=== PATIENT | female | born 1995 | race Caucasian/White ===

== ENCOUNTER 2017-10-25 18:45 | Inpatient (IN) ==
--- NOTE | 2017-10-25 18:19 | OB/GYN History & Physical ---
Date of Encounter: 10/25/17 Time of Encounter: 18:13 Assessment and Plan (1) 39 weeks gestation of Current visit: Yes Status: Acute admitted for delivery (2) Two vessel umbilical cord, antepartum, single gestation Current visit: Yes Status: Acute admitted for delivery (3) Spontaneous rupture of amniotic membranes Current visit: Yes Status: Acute admitted for delivery GBS: Negative History of Present Illness Chief complaint: SROM HPI: Ms. Quick is a 22 year old female at 39w3d presents to labor and delivery with complaints of leaking fluid that started around 12 noon today. Patient denies any color or odor to fluid. Patient reports occasional contractions and +FM. Patient denies any vaginal bleeding. Speculum exam on admission: + pooling,+nitrazine and + FERN test. SVE 3.5/90/-1. Patient admitted for delivery. Patient reports complicated by 2 vessel cord. Blood type: A+ GBS: Negative Rubella:Immune Hep B:Nonreactive RPR: Negative Past Med Surg Social Fam HX - Past Medical History Source: patient Medical history: no medical history Psychiatric history: no psych history - Past Surgical History Surgical History: no surgical history - Social History Smoking Status: Current every day smoker Smokeless Tobacco Status: No Alcohol use: none Drug use: none Occupational status: employed Current living situation: Home - Independent Activity Level: Independent ambulation Recent Out of Country Travel Within the Last 8 Weeks: No Exposure or Possible Exposure to Illness During Travel: No Obstetrical History - Pregnancies : 1 Para: 0 Term: 0 : 0 Ab's: 0 Livin Medications and Allergies Acyclovir 30 gm TP DAILY #1 oint...g. 05/07/16 [Rx] Acyclovir [Zovirax] 200 mg PO 5XD #50 capsule 05/07/16 [Rx] Sulfamethoxazole/Trimeth DS [Bactrim DS] 1 each PO BID #20 tablet 05/07/16 [Rx] 3 Allergy/AdvReac Type Severity Reaction Status Date / Time No Known Allergies Allergy Verified 03/02/16 11:29 Review of System OB - Constitutional Constitutional ROS IM: no chills, no fever(s), no headache(s) - Cardiovascular Cardiovascular: no chest pain, no leg edema, no palpitations, no pedal edema, no syncope - Respiratory Respiratory: no cough - Gastrointestinal Gastrointestinal: no abdominal pain, no constipation, no cramping, no diarrhea, no heartburn, no nausea, no vomiting - Genitourinary Genitourinary: vaginal discharge (per HPI), no abnormal vaginal bleeding, no difficulty urinating, no dysuria, no flank pain, no urinary frequency, no vaginal odor, no vaginal pruritis Exam - Constitutional Constitutional: well developed, well nourished, no acute distress, average body habitus - HEENT HEENT: Normocephaly, Mucus Membranes Moist - Neck Neck exam: full ROM, supple - Lungs Respiratory exam: CTAB - Cardiovascular Cardiovascular exam: RRR, +S1, +S2 - Abdomen Abdomen: Present: bowel sounds normal, gravid, non tender - Extremities Extremities exam: full ROM, normal capillary refill Deep Tendon Reflex Grade: 2+ Normal - Vagina Vagina: Present: normal moisture - Cervix Dilation: 3 (3.5) Effacement: 90 Station: -1 - Uterus Uterus exam: Present: normal size, normal contour - Anus/Rectum Anus/Rectum: Present: normal perianal skin - Comments Comments: speculum exam: +FERN, + Pooling and + Nitrazine. FHR 145 bpm moderate variability +15x15 accels no decels noted. Contractions 3- 4 min apart. Cat 1 tracing. Results All other labs normal. - VTE Reasons for not Prescribing Prophylaxis: Treatment not Indicated - Low risk for VTE
[~2017-10-25 18:45] MED LIST: *HR* Nalbuphine 20 MG/ML AMPUL IVP PRN; Famotidine 20 MG/2 ML VIAL IVP PRN; Naloxone 0.4 MG/ML INJ IVP PRN; Ondansetron 4 MG/2 ML VIAL IVP PRN; Ringers Solution, Lactated 1,000 ML IVC SCH
[2017-10-25 19:01] LABS: Basophils % 0.2 %; Eosinophils % 0.2 %; Hematocrit 35.9 % (35.3-44.9); Immature Granulocytes % 1.3 % (0-4); Lymphocytes # 1.6 K/mcL (0.6-4.6); Lymphocytes % 11.4 %; Mean Corpuscular HGB Conc 33.4 g/dL (31.6-35.5); Mean Corpuscular Hemoglobin 29.3 pg (28.0-33.3); Mean Corpuscular Volume 87.6 fL (83.0-100.0); Mean Platelet Volume 9.8 fL (9.4-12.4); Monocytes # 0.9 K/mcL (0.0-1.3); Monocytes % 6.7 %; Neutrophils # 11.1 K/mcL (1.6-8.9); Platelet Count 249 K/mcL (140-400); Red Cell Distribution Width 13.4 % (11.5-14.5); Segmented Neutrophils % 80.2 %
[2017-10-25] MEDS ORDERED: Oxytocin 20 units/ LR 1000 mL 20 UNIT/1,000 ML BAG IVC SCH (19:45)
--- NOTE | 2017-10-25 20:44 | OB Labor Progress Note ---
Date of Encounter: 10/25/17 Time of Encounter: 20:42 Labor Progress Note - Subjective Subjective: Patient resting in bed. Patient reports feeling contractions at this time. - Cervix Cervix: 4/90/-1 - Heart Tones Heart Tones: 135 bpm moderate amount variability +15x15 accels no decels noted. CAt. 1 tracing - [place]: 2-3 min apart - Interventions Interventions: SVE, IUPC placed without difficulty. Patient tolerated well. - Plan Plan: Continue labor management. Patient may have nubain or epidural if desires for pain management.
[2017-10-25] MEDS ORDERED: EPHEDrine 50 MG/ML VIAL IVP PRN (21:24)
[2017-10-25] MEDS ORDERED: Ringers Solution, Lactated 500 ML IVC ONE (21:24)
[2017-10-25] MEDS ORDERED: Epidural Premix (fent/bupiv) 110 ML EP SCH (21:30)
--- NOTE | 2017-10-25 22:23 | Anesthesia Evaluation PreOp ---
Date of Encounter: 10/25/17 Time of Encounter: 22:21 - Past History Planned Operation: JOVANNY Cardiac History: Denies any Significant Hx Pulmonary History: Smoker PROGRAM AIDE History: Denies Any Significant HX Other Medical History: Denies Any Significant HX Anesthesia History: No Prior Anesthetic Complications Alcohol Use: none Drug use: none, marijuana (in first month of . none since.) Medications and Allergies 3 Allergy/AdvReac Type Severity Reaction Status Date / Time No Known Allergies Allergy Verified 03/02/16 11:29 - Meds/Allergy Pre-op Review Medications Reviewed: Yes Allergies Reviewed: Yes Beta Blockers on Current Med List: No Anesthesia Results - Labs 10/25/17 18:45 Anesthesia Exam Height: 1.65m Weight: 95kg NPO (# of Hours): 8 Pain Scale: 5 Pain Scale Used: Numeric (1 - 10) - HEENT Pupil (Motor): Pupils equal Mallampati: II Teeth: Normal Oral Opening: Greater than 3 - PROGRAM AIDE LOC: Oriented PROGRAM AIDE Motor: Normal RUE, Normal LUE, Normal RLE, Normal LLE, Normal Face PROGRAM AIDE Sensory: Normal: RUE, LUE, RLE, LLE, Face - Cardiac Rhythm: Regular Murmur: None JVD: No Carotid Bruit: No - Pulmonary Breath Sounds: bilateral Clear Respiratory Effort: Symmetrical Anesthesia Assess/Plan ASA Score: 2 Modified Yessi Scale for Level of Consciousness: Cooperative, oriented, and tranquil Anesthetic Plan: General (plan b), Regional (plan a) Autologous Blood: Yes Monitoring Plan: Standard Monitors
[2017-10-25] MEDS ORDERED: Epidural Premix (fent/bupiv) 110 ML EP ONE (22:24)
--- NOTE | 2017-10-25 22:47 | Anesthesia Procedures ---
Date of Encounter: 10/25/17 Time of Encounter: 22:45 Procedures: Anesthesia - Epidural/Spinal Patient ID/Chart reviewed: Yes Patient examined: Yes OB Eval: Gestational age: 39.3 OB Eval: : 1 OB Eval: Hx Para: 0 OB Eval: Dilated at (cm): 4 OB Eval: Contractions: Non-stressed pattern Consent Obtained: Yes Supplemental Oxygen: None/Room Air Site Prep: Aseptic Technique, Sterile prep and drape, Povidone-Iodine 1% Patient position: upright Local Anesthetic: Lidocaine 1% Amount of Local Anesthetic used: 3 Touhy Needle Gauge: 18 Touhy Needle Depth (cm): 9 Catheter Depth at Skin (cm): 20 Test Dose (1.5% Lido + Epi): Volume given (mls): 5 Test Dose Result: Negative Loading Dose: Other: 10mls of epidural pharm bag premix solution Loading Dose Administered: Thru Catheter Infusion Med: 0.125% Bupivacaine w/ 2 mcg/ml Fentanyl Infusion Rate (mls/hr): 14 ([id number]) Catheter Secured in Place: Tegaderm, Tape Interspace Used: L3-L4 Loss of Resistance (MEHUL): Yes Blood: No CSF: No Paresthesia: No Procedure: pt tolerated procedure well. no complications. vss. fhr stable throughout procedure. see nursing notes for full vitals.
[2017-10-26] MEDS ORDERED: Epidural Premix (fent/bupiv) 110 ML EP ONE (04:39)
--- NOTE | 2017-10-26 10:00 | OB/GYN Procedure Note ---
Delivery - Delivery Date: 10/26/17 Provider: Cindy Powell Intrapartum events: none Delivery induction: none Delivery augmentation: pitocin Delivery monitor: external FHT, external uterine, internal uterine Anesthesia: local, epidural Estimated Blood Loss: 200 - Infant (s) A Infant Delivery Date: 10/26/17 Infant Delivery Time: 09:09 Presentation: vertex Position: OA Route of delivery: Gender: Male Viability: Viable Pounds: 7 Ounces: 9 Weight Gram: 3425 kg at 1 minute: 8 at 5 mins: 9 Shoulder Dystocia: not encountered Specimens collected: cord blood Placenta: spontaneous Cord: 2 umbilical vessels - Repair Episiotomy: none Laceration Description: Perineal - 1st Degree, Labial - Complications Delivery complications: none Delivery comments: Patient progressed to complete. A live born male, vertex, OA was delivered without complication via . Under maternal bearing down efforts the head was delivered, no nuchal was encountered, and the shoulders and body delivered easily. The infant was immediately placed on the maternal abdomen, APGARS 8/9. After the umbilical cord stopped pulsing the cord was clamped and cut. The placenta delivered spontaneously, was inspected and found to be intact. A 2- vessel cord was noted. A 1st degree perineal laceration was repaired using 2-0 monocryll and a left labial laceration was repaired using 4-0 monocryl. EBL 200. Mother and baby stable and left bonding in labor and delivery. Julienne Callaway PGY2 was present and assisted with delivery. - Disposition Mom disposition: stable in LDR disposition: stable in LDR
[2017-10-26] MEDS ORDERED: Oxytocin 20 units/ LR 1000 mL 20 UNIT/1,000 ML BAG IVC SCH (13:09)
[2017-10-26] MEDS ORDERED: Benzocaine/Menthol 56 GM AEROSOL SPRAY TP PRN (13:09)
[2017-10-26] MEDS ORDERED: Acetaminophen 325 MG TABLET PO PRN (13:09)
[2017-10-26] MEDS: Ibuprofen 600 MG TABLET PO PRN (14:46)
[2017-10-26] MEDS: metroNIDAZOLE 500 MG TABLET PO SCH (21:52)
[2017-10-27] MEDS: Ibuprofen 600 MG TABLET PO PRN ×2 (03:19→09:23)
[2017-10-27 05:09] LABS: Basophils # 0.1 K/mcL (0.0-0.2); Basophils % 0.3 %; Eosinophils # 0.1 K/mcL (0.0-0.6); Eosinophils % 0.4 %; Immature Granulocytes % 1.3 % (0-4); Lymphocytes # 2.3 K/mcL (0.6-4.6); Lymphocytes % 13.5 %; Mean Corpuscular HGB Conc 34.4 g/dL (31.6-35.5); Mean Corpuscular Hemoglobin 30.1 pg (28.0-33.3); Mean Corpuscular Volume 87.4 fL (83.0-100.0); Mean Platelet Volume 9.9 fL (9.4-12.4); Monocytes # 1.1 K/mcL (0.0-1.3); Monocytes % 6.4 %; Neutrophils # 13.1 K/mcL (1.6-8.9); Platelet Count 210 K/mcL (140-400); Red Blood Count 3.66 M/mcL (3.82-4.97); Red Cell Distribution Width 13.6 % (11.5-14.5); Segmented Neutrophils % 78.1 %
--- NOTE | 2017-10-27 08:38 | Discharge Summary ---
Date of Encounter: 10/27/17 Time of Encounter: 08:35 - Discharge Diagnosis (1) 39 weeks gestation of Priority: Secondary Status: Acute (2) Two vessel umbilical cord, antepartum, single gestation Priority: Secondary Status: Acute (3) Spontaneous rupture of amniotic membranes Priority: Secondary Status: Acute (4) Status post vaginal delivery Priority: Primary Status: Acute Comments: Continue routine care discharge home today patient to follow up with Dr. Nunez in 4-6 weeks - Discharge Medications Home Medications: Metronidazole 500 mg PO Q12HR 10/26/17 [History] Ibuprofen [Motrin] 600 mg PO Q6HR PRN tablet 10/27/17 [Rx] Vit/FA 1 each PO DAILY tablet 10/27/17 [Rx] metroNIDAZOLE [Flagyl] 500 mg PO BID tablet 10/27/17 [Rx] Allergies/Adverse Reactions: 3 Allergy/AdvReac Type Severity Reaction Status Date / Time No Known Allergies Allergy Verified 03/02/16 11:29 Data Procedures and tests throughout hospitalization: Laboratory Tests 10/25/17 10/27/17 18:45 04:14 WBC 13.8 H 16.8 H RBC 4.10 3.66 L Hgb 12.0 11.0 L Hct 35.9 32.0 L MCV 87.6 87.4 MCH 29.3 30.1 MCHC 33.4 34.4 RDW 13.4 13.6 Plt Count 249 210 MPV 9.8 9.9 Immature Gran % 1.3 1.3 Seg Neutrophils % 80.2 78.1 Lymphocytes % 11.4 13.5 Monocytes % 6.7 6.4 Eosinophils % 0.2 0.4 Basophils % 0.2 0.3 Neutrophils # 11.1 H 13.1 H Lymphocytes # 1.6 2.3 Monocytes # 0.9 1.1 Eosinophils # 0.0 0.1 Basophils # 0.0 0.1 Labs on day of discharge: Labs from last 24 hours 10/27/17 04:14 WBC 16.8 H RBC 3.66 L Hgb 11.0 L Hct 32.0 L MCV 87.4 MCH 30.1 MCHC 34.4 RDW 13.6 Plt Count 210 MPV 9.9 Immature Gran % 1.3 Seg Neutrophils % 78.1 Lymphocytes % 13.5 Monocytes % 6.4 Eosinophils % 0.4 Basophils % 0.3 Neutrophils # 13.1 H Lymphocytes # 2.3 Monocytes # 1.1 Eosinophils # 0.1 Basophils # 0.1 Date of admission: 10/25/17 18:45 Primary care physician: PCP NONE Consults: 10/26/17 13:09 Consult to Temperature Inspector [CONS] Routine Comment: Vaginal delivery, consult needed Discharging clinician: Doreen Walker Anticipated date of discharge: 10/27/17 - Patient Status Disposition: Home, Self-Care Condition: Good Functional capacity at discharge: independent ambulation Overall status at discharge: patient is back to baseline - Discharge Instructions Follow Up With: NONE,PCP [Primary Care Provider] - Brandi Nunez MD [Partnered Physician] - - Diet and Activity Activity: increase activity as tolerated Diet: regular diet Hospital Course Reason for admission: active labor, rupture of membranes Delivery: Episiotomy: none Laceration: 1st degree, other (labial laceration) complications: none Discharge diagnosis: IUP at term delivered baby: male (bottle feeding) Time spent discussing smoking cessation with patient: 3 to 10 minutes Time Attestation: Total time spent providing and/or coordinating discharge services: Exam - Constitutional Vitals: Temp Pulse Resp BP Pulse Ox 97.4 F L 90 16 136/77 97 10/27/17 03:15 10/27/17 03:15 10/27/17 03:15 10/27/17 03:15 10/27/17 03:15 General appearance IM: A&O X 3, pleasant, answers questions appropriately - Respiratory Respiratory exam: Present: CTAB - Cardiovascular Cardiovascular exam IM: Present: RRR, +S1, +S2 - GI/Abdominal GI/Abdominal exam IM: normal bowel sounds - Uterine Tone: Firm Uterus Position: 1 Finger Below Umbilicus, Midline - Extremities Exam Extremities exam IM: Present: full ROM, normal capillary refill - Neurological Exam Neurological exam: alert, oriented X3, reflexes normal
[2017-10-27] MEDS ORDERED: Prenatal Vit/FA 1 EACH TABLET PO SCH (09:00)
[2017-10-27] MEDS: metroNIDAZOLE 500 MG TABLET PO SCH (09:24)
[2017-10-27 09:37] VITALS: BP 124/71
== END 2017-10-27 13:30 | disposition home or self-care (01) | DRG 775 ==
LOC: 1NENULAB
PROVIDERS: ADMIT Obstetrics & Gynecology; ATTEND Obstetrics & Gynecology